=== PATIENT | female | born 1950 | race Caucasian/White ===

== ENCOUNTER 2017-02-03 19:11 | Emergency (ER) | payer MEDICARE, MEDICAID ==
[2017-02-03] MEDS ORDERED: proparacaine 0.5% ophthalmic drops 15ml LEFTEYE ONE (21:10)
[2017-02-03] MEDS ORDERED: POLOS LEFTEYE (21:35)
[2017-02-03 21:44] VITALS: BP 188/105
== END 2017-02-03 21:46 | disposition home or self-care (01) ==
LOC: ER 19:12
DX: H10.9 Unspecified conjunctivitis (principal); Z86.19 Personal history of other infectious and parasitic diseases; Z85.89 Personal history of malignant neoplasm of other organs and systems
CPT/HCPCS: 99283

== ENCOUNTER 2017-08-27 02:20 | Emergency (ER) | payer MEDICARE, MEDICAID ==
[~2017-08-27] VITALS: Ht 157.5 cm; Wt 70.0 kg
[2017-08-27] MEDS ORDERED: OLANZapine 2.5MG tablet PO SCH (03:15)
[2017-08-27 03:27] LABS: BASOPHILS % (AUTO) 0.1 % (0-1); EOSINOPHILS # (AUTO) 0.1 X10'3 (0-0.9); EOSINOPHILS % (AUTO) 0.3 % (0-6); HEMATOCRIT 44.7 % (35.0-45.0); LYMPHOCYTES # (AUTO) 1.8 X10'3 (1.1-4.8); LYMPHOCYTES % (AUTO) 11.3 % (21-51); MEAN CORPUSCULAR HEMOGLOBIN 32.9 PG (27.0-31.0); MEAN CORPUSCULAR HGB CONC 33.6 % (33.0-36.5); MEAN CORPUSCULAR VOLUME 97.9 FL (78-98); MEAN PLATELET VOLUME 11.1 FL (7.4-10.4); MONOCYTES % (AUTO) 6.5 % (2-12); NEUTROPHILS # (AUTO) 13.1 X10'3 (1.8-7.7); NEUTROPHILS % (AUTO) 81.8 % (42-75); PLATELET COUNT 255 X10'3 (140-440); RED BLOOD COUNT 4.56 X10'6 (4.20-5.60); RED CELL DISTRIBUTION WIDTH 14.4 % (11.5-14.5)
[2017-08-27 03:32] LABS: CLARITY,URINE CLOUDY (Clear); COLOR,URINE YELLOW (Yellow); GLUCOSE, URINE NEGATIVE (Neg); KETONES,URINE TRACE mg/dl (Neg); LEUKOCYTE ESTERASE ,URINE SMALL (Neg); NITRITES, URINE POSITIVE (Neg); OCCULT BLOOD,URINE TRACE-INTACT (Neg); PROTEIN,URINE TRACE mg/dl (Neg); UA COLLECTION TYPE STRAIGHT CATH
[2017-08-27 03:42] LABS: URINE AMPHETAMINE SCREEN NEGATIVE (Neg); URINE BARBITUATE SCREEN NEGATIVE (Neg); URINE BENZODIAZEPINES SCREEN NEGATIVE (Neg); URINE CANNABINOID SCREEN POSITIVE (Neg); URINE COCAINE SCREEN NEGATIVE (Neg); URINE METHADONE SCREEN NEGATIVE (Neg); URINE OPIATE SCREEN NEGATIVE (Neg); URINE PHENCYCLIDINE SCREEN NEGATIVE (Neg)
[2017-08-27 03:44] LABS: BACTERIA,URINE 4+ /HPF (Neg); RBC,URINE 0-2 /HPF (0-2); SQUAMOUS EPITHELIAL CELL,UR MODERATE /LPF (FEW); WBC,URINE 30-50 /HPF (0-4)
[2017-08-27 03:45] LABS: HYALINE CASTS 0-3 /LPF (NEGATIVE); MUCUS STRANDS FEW /LPF (Neg); WBC CLUMPS,URINE FEW /HPF (NEGATIVE)
[2017-08-27 03:53] LABS: ALANINE AMINOTRANSFERASE 45 U/L (12-78); ALBUMIN 3.9 G/DL (3.4-5.0); ALKALINE PHOSPHATASE 113 IU/L (46-116); ANION GAP 11 (8-16); ASPARTATE AMINO TRANSFERASE 36 U/L (10-37); BILIRUBIN,TOTAL 0.8 MG/DL (0.1-1.0); BLOOD UREA NITROGEN 23 MG/DL (7-18); BUN/CREATININE RATIO 20.2 (6.6-38.0); CHLORIDE 105 MMOL/L (99-107); CREATININE 1.14 MG/DL (0.40-0.90); GLUCOSE 106 MG/DL (70-104); POTASSIUM 3.3 MMOL/L (3.5-5.1); SODIUM 141 MMOL/L (135-145); TOTAL CARBON DIOXIDE 25.3 MMOL/L (24-32); TOTAL PROTEIN 7.7 G/DL (6.4-8.2); eGFR 48 ML/MIN
[2017-08-27 04:03] LABS: ETHANOL < 0.010 GM/DL (0.0-0.010)
[2017-08-27 04:04] LABS: ACETAMINOPHEN < 2.0 UG/ML (10-30)
[2017-08-27] MEDS ORDERED: METO50TA16 PO (04:06)
[2017-08-27 04:07] LABS: LARGE PLATELETS MODERATE; PLATELET ESTIMATE NORMAL
[2017-08-27] MEDS ORDERED: OLANZapine **IM** 10 mg inj. IM ONE (04:25)
[2017-08-27] MEDS ORDERED: CefTRIAXone/D5W-Rocephin 1gm 50 ML IV ONE (06:00)
[2017-08-27] MEDS ORDERED: normal saline 1000ML IV soln IVB ONE (07:00)
[2017-08-27] MEDS ORDERED: LORazepam 2 mg/ml vial IV ONE (08:45)
[2017-08-27] MEDS ORDERED: OLANZapine **IM** 10 mg inj. IM PRN (18:00)
[2017-08-27] MEDS ORDERED: LORazepam 1 MG tablet PO ONE (18:00)
[2017-08-27] MEDS: nitrofuran/nitrofuran macrocrysal 100 MG capsule PO SCH (21:08)
[2017-08-28 06:52] VITALS: BP 148/81
[2017-08-28] MEDS: nitrofuran/nitrofuran macrocrysal 100 MG capsule PO SCH (08:24)
[2017-08-28] MEDS ORDERED: ibuprofen tablet 400 MG TABLET PO ONE (08:30)
== END 2017-08-28 13:09 | disposition home or self-care (01) ==
LOC: ER 02:20
DX: F29 Unspecified psychosis not due to a substance or known physiological condition (principal); R41.0 Disorientation, unspecified; I10 Essential (primary) hypertension; E11.9 Type 2 diabetes mellitus without complications
CPT/HCPCS: 36415; 70450; 71045; 80053; 80305; 80320; 80329; 81001; 84443; 85025; 96365; 96372; 96375; 99285; J0696; J2060; J7030

== ENCOUNTER 2017-08-28 12:00 | Inpatient (IN) | payer MEDICARE, MEDICAID ==
[~2017-08-28] VITALS: Ht 160 cm; Wt 74.0 kg
[~2017-08-28 12:00] MED LIST: METO50TA16 PO
[2017-08-28 13:41] VITALS: BP 156/84
[2017-08-28] MEDS ORDERED: magnesium hydroxide 30ml (MOM) UD suspension PO PRN (13:45)
[2017-08-28] MEDS ORDERED: acetaminophen 325mg tablet PO PRN (13:45)
[2017-08-28 14:32] LABS: CHOL/HDL RATIO 3.4 (0.00-4.99); CHOLESTEROL 155 MG/DL (0-200); HDL CHOLESTEROL 46 MG/DL (35-60); LDL CHOLESTEROL 89 MG/DL (50-100); TRIGLYCERIDES 124 MG/DL (20-135)
[2017-08-28 19:00] VITALS: BP 139/75
[2017-08-28] MEDS: nitrofuran/nitrofuran macrocrysal 100 MG capsule PO SCH (20:51)
[2017-08-28] MEDS: metoprolol tartrate 50mg tablet PO SCH (20:52)
[2017-08-28] MEDS: acetaminophen 325mg tablet PO PRN (20:52)
[2017-08-29] MEDS ORDERED: traZODone 50mg tablet PO ONE (00:39)
[2017-08-29 08:00] VITALS: BP 149/81
[2017-08-29] MEDS: metoprolol tartrate 50mg tablet PO SCH ×2 (08:15→20:57)
[2017-08-29] MEDS: nitrofuran/nitrofuran macrocrysal 100 MG capsule PO SCH ×2 (08:15→20:57)
[2017-08-29] MEDS: mag hydrox/Alum hydrox/simeth 30ml oral suspension PO PRN (09:59)
[2017-08-29] MEDS ORDERED: nicotine prolacrilex 2mg gum BC PRN (10:15)
[2017-08-29] MEDS ORDERED: nicotine 21mg patch - 24 hr TD ONE (10:15)
[2017-08-29] MEDS ORDERED: magnesium 4gm in 100ml NS 100 ML IV PRN (18:30)
[2017-08-29] MEDS ORDERED: potassium Cl 20 mEq SR tablet PO PRN ×2 (18:30)
[2017-08-29] MEDS ORDERED: potassium Cl 40MEQ/NS 500ml 500 ML IV PRN ×2 (18:30)
[2017-08-29] MEDS ORDERED: magnesium Cl slow-release 64mg tablet PO PRN (18:30)
[2017-08-29] MEDS: hydrOXYzine 25 MG tablet PO PRN (20:57)
[2017-08-29 20:59] VITALS: BP 129/81
[2017-08-29] MEDS ORDERED: divalproex sod 250mg ER (24-hour) tablet PO SCH (21:00)
[2017-08-30] MEDS ORDERED: temazepam 15mg capsule PO ONE (01:15)
[2017-08-30] MEDS ORDERED: temazepam 15mg capsule PO PRN (01:15)
[2017-08-30] MEDS: mag hydrox/Alum hydrox/simeth 30ml oral suspension PO PRN (01:24)
[2017-08-30] MEDS: acetaminophen 325mg tablet PO PRN ×2 (01:25→20:09)
[2017-08-30] MEDS: metoprolol tartrate 50mg tablet PO SCH ×2 (07:54→20:09)
[2017-08-30] MEDS: nicotine 21mg patch - 24 hr TD SCH (07:54)
[2017-08-30] MEDS: nitrofuran/nitrofuran macrocrysal 100 MG capsule PO SCH ×2 (07:54→20:09)
[2017-08-30 07:56] VITALS: BP 142/85
[2017-08-30 08:23] LABS: ALBUMIN 2.9 G/DL (3.4-5.0); ANION GAP 11 (8-16); BLOOD UREA NITROGEN 21 MG/DL (7-18); BUN/CREATININE RATIO 29.6 (6.6-38.0); CALCIUM 9.4 MG/DL (8.5-10.1); CHLORIDE 101 MMOL/L (99-107); CREATININE 0.71 MG/DL (0.40-0.90); GLUCOSE 116 MG/DL (70-104); POTASSIUM 3.6 MMOL/L (3.5-5.1); SODIUM 139 MMOL/L (135-145); TOTAL CARBON DIOXIDE 27.1 MMOL/L (24-32); eGFR 82 ML/MIN
[2017-08-30] MEDS ORDERED: divalproex sod 250mg ER (24-hour) tablet PO SCH ×2 (08:30→21:00)
[2017-08-30] MEDS: protein smoothie 8oz. (237ml) PO SCH ×2 (13:00→18:00)
[2017-08-30 20:00] VITALS: BP 135/87
[2017-08-30] MEDS: hydrOXYzine 25 MG tablet PO PRN (20:08)
[2017-08-30] MEDS ORDERED: QUEtiapine 25mg tablet PO SCH (21:00)
[2017-08-31] MEDS: temazepam 15mg capsule PO PRN ×2 (00:10→20:20)
[2017-08-31] MEDS: mag hydrox/Alum hydrox/simeth 30ml oral suspension PO PRN (03:56)
[2017-08-31] MEDS ORDERED: quetiapine 100mg tablet PO ONE (07:45)
[2017-08-31] MEDS ORDERED: divalproex sod 250mg ER (24-hour) tablet PO ONE (07:45)
[2017-08-31 08:00] VITALS: BP 140/72
[2017-08-31] MEDS: protein smoothie 8oz. (237ml) PO SCH ×3 (08:00→18:00)
[2017-08-31] MEDS: nicotine 21mg patch - 24 hr TD SCH (08:39)
[2017-08-31] MEDS: nitrofuran/nitrofuran macrocrysal 100 MG capsule PO SCH ×2 (08:39→20:20)
[2017-08-31] MEDS: metoprolol tartrate 50mg tablet PO SCH ×2 (08:40→20:19)
[2017-08-31] MEDS: divalproex sod 250mg ER (24-hour) tablet PO SCH ×2 (08:40→20:19)
[2017-08-31 08:57] LABS: MAGNESIUM 2.1 MG/DL (1.5-2.4); POTASSIUM 3.7 MMOL/L (3.5-5.1)
[2017-08-31 19:00] VITALS: BP 136/65
[2017-08-31] MEDS: quetiapine 100mg tablet PO SCH (20:19)
[2017-08-31] MEDS: hydrOXYzine 25 MG tablet PO PRN (20:20)
[2017-08-31] MEDS ORDERED: LORazepam 1 MG tablet PO PRN (22:50)
[2017-09-01 08:00] VITALS: BP 162/81
[2017-09-01] MEDS: protein smoothie 8oz. (237ml) PO SCH ×3 (08:00→18:00)
[2017-09-01 09:14] LABS: MAGNESIUM 2.2 MG/DL (1.5-2.4); POTASSIUM 3.7 MMOL/L (3.5-5.1)
[2017-09-01] MEDS: nicotine 21mg patch - 24 hr TD SCH (09:18)
[2017-09-01] MEDS: divalproex sod 250mg ER (24-hour) tablet PO SCH ×2 (09:18→22:30)
[2017-09-01] MEDS: metoprolol tartrate 50mg tablet PO SCH ×2 (09:19→22:31)
[2017-09-01] MEDS: hydrOXYzine 25 MG tablet PO PRN (09:19)
[2017-09-01] MEDS: nitrofuran/nitrofuran macrocrysal 100 MG capsule PO SCH ×2 (09:19→22:32)
[2017-09-01 20:00] VITALS: BP 103/73
[2017-09-01] MEDS: quetiapine 100mg tablet PO SCH (22:32)
[2017-09-01] MEDS: acetaminophen 325mg tablet PO PRN (22:47)
[2017-09-02 08:00] VITALS: BP 157/72
[2017-09-02] MEDS: protein smoothie 8oz. (237ml) PO SCH (08:00)
[2017-09-02] MEDS: divalproex sod 250mg ER (24-hour) tablet PO SCH (08:08)
[2017-09-02] MEDS: metoprolol tartrate 50mg tablet PO SCH (08:08)
[2017-09-02] MEDS: nitrofuran/nitrofuran macrocrysal 100 MG capsule PO SCH (08:08)
[2017-09-02] MEDS: nicotine 21mg patch - 24 hr TD SCH (08:08)
[2017-09-02] MEDS ORDERED: aspirin 325mg tablet PO SCH (12:10)
[2017-09-02] MEDS ORDERED: normal saline 1000ml 1,000 ML IV SCH (12:15)
[2017-09-02 12:38] LABS: BASOPHILS # (AUTO) 0.1 X10'3 (0-0.2); BASOPHILS % (AUTO) 0.5 % (0-1); EOSINOPHILS # (AUTO) 0.2 X10'3 (0-0.9); EOSINOPHILS % (AUTO) 1.5 % (0-6); HEMATOCRIT 39.4 % (35.0-45.0); HEMOGLOBIN 13.3 g/dl (12.0-16.0); LYMPHOCYTES # (AUTO) 3.3 X10'3 (1.1-4.8); LYMPHOCYTES % (AUTO) 22.9 % (21-51); MEAN CORPUSCULAR HEMOGLOBIN 32.8 PG (27.0-31.0); MEAN CORPUSCULAR HGB CONC 33.8 % (33.0-36.5); MEAN PLATELET VOLUME 11.5 FL (7.4-10.4); MONOCYTES % (AUTO) 6.8 % (2-12); NEUTROPHILS % (AUTO) 68.3 % (42-75); PLATELET COUNT 227 X10'3 (140-440); RED BLOOD COUNT 4.06 X10'6 (4.20-5.60); RED CELL DISTRIBUTION WIDTH 14.4 % (11.5-14.5); WHITE BLOOD COUNT 14.6 X10'3 (4.5-11.0)
[2017-09-02 12:49] LABS: INR 1.1 INR; PARTIAL THROMBOPLASTIN TIME 26 SECONDS (22-32); PROTHROMBIN TIME 11.1 SECONDS (9.0-12.0)
[2017-09-02 12:53] LABS: ALANINE AMINOTRANSFERASE 58 U/L (12-78); ALBUMIN 2.9 G/DL (3.4-5.0); ALBUMIN/GLOBULIN RATIO 0.7 (1.1-1.5); ALKALINE PHOSPHATASE 121 IU/L (46-116); ANION GAP 12 (8-16); ASPARTATE AMINO TRANSFERASE 23 U/L (10-37); BILIRUBIN,TOTAL 0.6 MG/DL (0.1-1.0); BLOOD UREA NITROGEN 18 MG/DL (7-18); BUN/CREATININE RATIO 25.4 (6.6-38.0); CALCIUM 9.5 MG/DL (8.5-10.1); CHLORIDE 101 MMOL/L (99-107); CREATININE 0.71 MG/DL (0.40-0.90); GLUCOSE 177 MG/DL (70-104); POTASSIUM 3.9 MMOL/L (3.5-5.1); SODIUM 137 MMOL/L (135-145); TOTAL CARBON DIOXIDE 23.7 MMOL/L (24-32); TOTAL PROTEIN 6.8 G/DL (6.4-8.2); eGFR 82 ML/MIN
[2017-09-02 12:57] LABS: D-DIMER 1.24 MG/L FEU (0-0.50)
[2017-09-02] MEDS ORDERED: heparin 10,000 units/1 ML INJ IV ONE (13:05)
[2017-09-02] MEDS ORDERED: heparin 10,000 units/1 ML INJ IV PRN (13:05)
[2017-09-02 13:06] LABS: LARGE PLATELETS MODERATE; PLATELET ESTIMATE NORMAL; TOTAL CELLS COUNTED 100
[2017-09-02] MEDS ORDERED: haloperidol 1mg tablet PO SCH (20:00)
[2017-09-02] MEDS ORDERED: LORazepam 0.5 MG tablet PO SCH (20:00)
[2017-09-06] MEDS ORDERED: TRAZ-143 PO (13:33)
== END 2017-09-02 14:03 | disposition still patient (30) | DRG 885 ==
LOC: ADULT MH 12:00
PROVIDERS: ADMIT Psychiatry & Neurology Psychiatry; ATTEND Psychiatry & Neurology Psychiatry
DX: F20.3 Undifferentiated schizophrenia (principal); N17.9 Acute kidney failure, unspecified; N39.0 Urinary tract infection, site not specified; E11.9 Type 2 diabetes mellitus without complications; E86.0 Dehydration; E87.6 Hypokalemia; F10.11 Alcohol abuse, in remission; M79.601 Pain in right arm; F12.10 Cannabis abuse, uncomplicated; F17.210 Nicotine dependence, cigarettes, uncomplicated; E66.3 Overweight; M50.90 Cervical disc disorder, unspecified, unspecified cervical region; I70.8 Atherosclerosis of other arteries; D72.829 Elevated white blood cell count, unspecified; F31.9 Bipolar disorder, unspecified; F41.9 Anxiety disorder, unspecified; I10 Essential (primary) hypertension; Z79.899 Other long term (current) drug therapy; Z85.828 Personal history of other malignant neoplasm of skin; Z91.5 Personal history of self-harm; Z71.6 Tobacco abuse counseling; Z71.51 Drug abuse counseling and surveillance of drug abuser; Z68.28 Body mass index [BMI] 28.0-28.9, adult
CPT/HCPCS: 36415; 71045; 73206; 80048; 80053; 80061; 82948; 83036; 83605; 83735; 84132; 84484; 85025; 85379; 85610; 85730; 87070; 93005; 93931; 99406; C1751; J7030; Q0177

== ENCOUNTER 2017-09-02 13:33 | Inpatient (IN) | payer MEDICARE, MEDICAID ==
[~2017-09-02] VITALS: Ht 160 cm; Wt 78.1 kg
[2017-09-02] VITALS (16 sets, daily range): BP systolic 92–219; BP diastolic 48–113
[2017-09-02] MEDS ORDERED: MIDAZolam 5mg/ml 2ml vial ONE (14:23)
[2017-09-02 14:26] LABS: ABG BASE EXCESS -8.7 mmol/L (-2.0-3.0); ABG HCO3 19.8 mmol/L (22.0-26.0); ABG OXYGEN SATURATION 94.1 % (95-98); ABG PCO2 (T) 52.6 mmHg (32.0-45.0); ABG PH (T) 7.194 (7.350-7.450); ABG PO2 (T) 89.5 mmHg (83-108); ALLEN'S TEST Positive; FCOHb 0.3 % (0.5-1.5); FMetHb 0.3 % (0.3-1.12); FO2Hb 93.5 % (94-100); TOTAL HEMOGLOBIN 14.7 G/dl (12.0-16.0)
[2017-09-02] MEDS ORDERED: heparin 10,000 units/1 ML INJ IV ONE (14:30)
[2017-09-02] MEDS ORDERED: heparin 10,000 units/1 ML INJ IV PRN (14:30)
[2017-09-02] MEDS ORDERED: midazolam 100mg in NS 100ml 100 ML IV PRN (14:47)
[2017-09-02 14:51] LABS: CLARITY,URINE SLIGHTLY CLOUDY (Clear); COLOR,URINE YELLOW (Yellow); GLUCOSE, URINE NEGATIVE (Neg); KETONES,URINE 15 mg/dl (Neg); LEUKOCYTE ESTERASE ,URINE NEGATIVE (Neg); NITRITES, URINE NEGATIVE (Neg); OCCULT BLOOD,URINE NEGATIVE (Neg); PROTEIN,URINE NEGATIVE (Neg); UROBILINOGEN,URINE 0.2 E.U/dL (0.2-1.0)
[2017-09-02 14:56] LABS: UA COLLECTION TYPE NON-SPECIFIED
[2017-09-02 15:00] LABS: AMORPHOUS URATES 1+; BACTERIA,URINE NONE SEEN /HPF (Neg); MUCUS STRANDS MANY /LPF (Neg); RBC,URINE NONE SEEN /HPF (0-2); RENAL CELLS, URINE FEW /HPF; SQUAMOUS EPITHELIAL CELL,UR MANY /LPF (FEW); TRANSITIONAL EPI CELLS,URINE MODERATE /HPF; WBC,URINE 0-4 /HPF (0-4)
[2017-09-02 15:01] LABS: HYALINE CASTS 0-3 /LPF (NEGATIVE)
[2017-09-02] MEDS: FENTANYL-0.9 % NACL/PF 100 ML IV PRN (15:10)
[2017-09-02] MEDS ORDERED: magnesium hydroxide 30ml (MOM) UD suspension PO PRN (15:15)
[2017-09-02] MEDS ORDERED: metoclopramide 5 mg/ml inj IV PRN (15:15)
[2017-09-02] MEDS ORDERED: acetaminophen 325mg tablet PO PRN ×2 (15:15)
[2017-09-02] MEDS ORDERED: potassium Cl 20 mEq SR tablet PO PRN (15:15)
[2017-09-02] MEDS ORDERED: morphine 4 MG/ML inj SYRINge IV PRN ×2 (15:15)
[2017-09-02 15:26] LABS: BASOPHILS % (AUTO) 0.2 % (0-1); EOSINOPHILS # (AUTO) 0.1 X10'3 (0-0.9); EOSINOPHILS % (AUTO) 0.9 % (0-6); HEMATOCRIT 38.2 % (35.0-45.0); HEMOGLOBIN 12.9 g/dl (12.0-16.0); LYMPHOCYTES # (AUTO) 1.2 X10'3 (1.1-4.8); LYMPHOCYTES % (AUTO) 10.1 % (21-51); MEAN CORPUSCULAR HEMOGLOBIN 32.9 PG (27.0-31.0); MEAN CORPUSCULAR HGB CONC 33.9 % (33.0-36.5); MEAN CORPUSCULAR VOLUME 97.2 FL (78-98); MEAN PLATELET VOLUME 11.1 FL (7.4-10.4); MONOCYTES # (AUTO) 0.4 X10'3 (0-0.9); MONOCYTES % (AUTO) 3.5 % (2-12); NEUTROPHILS # (AUTO) 9.8 X10'3 (1.8-7.7); NEUTROPHILS % (AUTO) 85.3 % (42-75); PLATELET COUNT 207 X10'3 (140-440); RED BLOOD COUNT 3.93 X10'6 (4.20-5.60); RED CELL DISTRIBUTION WIDTH 13.9 % (11.5-14.5); WHITE BLOOD COUNT 11.5 X10'3 (4.5-11.0)
[2017-09-02] MEDS ORDERED: iohexol 350MG/ML 100ml bottle IV ONE (15:30)
[2017-09-02] MEDS ORDERED: iohexol 350 MG/ML 50ML vial IV ONE (15:31)
[2017-09-02 15:35] LABS: INR 1.1 INR; PROTHROMBIN TIME 11.6 SECONDS (9.0-12.0)
[2017-09-02 15:43] LABS: LARGE PLATELETS MODERATE; PLATELET ESTIMATE NORMAL
[2017-09-02 15:44] LABS: ALANINE AMINOTRANSFERASE 55 U/L (12-78); ALBUMIN 2.7 G/DL (3.4-5.0); ALBUMIN/GLOBULIN RATIO 0.7 (1.1-1.5); ALKALINE PHOSPHATASE 113 IU/L (46-116); ANION GAP 13 (8-16); ASPARTATE AMINO TRANSFERASE 19 U/L (10-37); BILIRUBIN,TOTAL 0.5 MG/DL (0.1-1.0); BLOOD UREA NITROGEN 21 MG/DL (7-18); CHLORIDE 103 MMOL/L (99-107); CREATININE 0.84 MG/DL (0.40-0.90); GLUCOSE 232 MG/DL (70-104); SODIUM 139 MMOL/L (135-145); TOTAL CARBON DIOXIDE 23.5 MMOL/L (24-32); TOTAL PROTEIN 6.6 G/DL (6.4-8.2); eGFR 68 ML/MIN
[2017-09-02 15:51] LABS: ABG BASE EXCESS -5.2 mmol/L (-2.0-3.0); ABG HCO3 21.8 mmol/L (22.0-26.0); ABG OXYGEN SATURATION 99.2 % (95-98); ABG PCO2 (T) 48.1 mmHg (32.0-45.0); ABG PH (T) 7.274 (7.350-7.450); ABG PO2 (T) 206.9 mmHg (83-108); FCOHb 0.3 % (0.5-1.5); FMetHb 0.4 % (0.3-1.12); FO2Hb 98.5 % (94-100); MINUTE VOLUME 8 L/min; PEEP 5 cm H2O; RESPIRATORY RATE 18 b/min; RESPIRATORY RATE (OBSERVED) 18 b/min; TOTAL HEMOGLOBIN 13.2 G/dl (12.0-16.0)
[2017-09-02 15:58] LABS: TROPONIN I 0.33 NG/ML (0.0-0.05)
[2017-09-02] MEDS ORDERED: heparin 10,000 units/1 ML INJ ONE (17:48)
[2017-09-02] MEDS ORDERED: rocuronium 10mg/ml inj IV ONE (18:00)
[2017-09-02] MEDS ORDERED: sevoflurane 250ml liquid IH ONE (18:00)
[2017-09-02] MEDS ORDERED: ceFAZolin 1000mg inj ONE ×2 (18:03→18:50)
[2017-09-02] MEDS ORDERED: fentaNYL /PF 50mcg/ml 5ml ampule ONE (18:19)
[2017-09-02] MEDS ORDERED: enoxaparin 80mg/0.8ml syringe SUBCUT SCH (20:35)
[2017-09-02 20:43] LABS: PARTIAL THROMBOPLASTIN TIME 153 SECONDS (22-32)
[2017-09-02 20:56] LABS: BASOPHILS % (AUTO) 0.4 % (0-1); EOSINOPHILS # (AUTO) 0.1 X10'3 (0-0.9); EOSINOPHILS % (AUTO) 0.9 % (0-6); HEMATOCRIT 34.8 % (35.0-45.0); HEMOGLOBIN 11.6 g/dl (12.0-16.0); LYMPHOCYTES # (AUTO) 1.7 X10'3 (1.1-4.8); LYMPHOCYTES % (AUTO) 16.2 % (21-51); MEAN CORPUSCULAR HGB CONC 33.3 % (33.0-36.5); MEAN CORPUSCULAR VOLUME 98.9 FL (78-98); MEAN PLATELET VOLUME 10.8 FL (7.4-10.4); MONOCYTES # (AUTO) 0.6 X10'3 (0-0.9); MONOCYTES % (AUTO) 5.5 % (2-12); NEUTROPHILS # (AUTO) 8.1 X10'3 (1.8-7.7); PLATELET COUNT 194 X10'3 (140-440); RED BLOOD COUNT 3.52 X10'6 (4.20-5.60); RED CELL DISTRIBUTION WIDTH 14.3 % (11.5-14.5); WHITE BLOOD COUNT 10.6 X10'3 (4.5-11.0)
[2017-09-02 21:11] LABS: ABG BASE EXCESS -1.2 mmol/L (-2.0-3.0); ABG HCO3 23.3 mmol/L (22.0-26.0); ABG OXYGEN SATURATION 94.2 % (95-98); ABG PCO2 (T) 37.8 mmHg (32.0-45.0); ABG PH (T) 7.406 (7.350-7.450); ABG PO2 (T) 72.3 mmHg (83-108); FCOHb 0.2 % (0.5-1.5); FMetHb 0.3 % (0.3-1.12); FO2Hb 93.7 % (94-100); MINUTE VOLUME 8 L/min; PATIENT TEMPERATURE 36.7; PEEP 5 cm H2O; RESPIRATORY RATE 18 b/min; RESPIRATORY RATE (OBSERVED) 19 b/min; TIDAL VOLUME 400 mL; TOTAL HEMOGLOBIN 12.9 G/dl (12.0-16.0)
[2017-09-02 21:14] LABS: ALANINE AMINOTRANSFERASE 48 U/L (12-78); ALBUMIN 2.3 G/DL (3.4-5.0); ALBUMIN/GLOBULIN RATIO 0.7 (1.1-1.5); ALKALINE PHOSPHATASE 99 IU/L (46-116); ANION GAP 8 (8-16); ASPARTATE AMINO TRANSFERASE 21 U/L (10-37); BILIRUBIN,TOTAL 0.5 MG/DL (0.1-1.0); BLOOD UREA NITROGEN 17 MG/DL (7-18); BUN/CREATININE RATIO 29.3 (6.6-38.0); CALCIUM 8.1 MG/DL (8.5-10.1); CHLORIDE 107 MMOL/L (99-107); CREATININE 0.58 MG/DL (0.40-0.90); GLUCOSE 108 MG/DL (70-104); MAGNESIUM 1.9 MG/DL (1.5-2.4); PHOSPHORUS 3.5 MG/DL (2.3-4.5); POTASSIUM 3.9 MMOL/L (3.5-5.1); SODIUM 140 MMOL/L (135-145); TOTAL CARBON DIOXIDE 24.8 MMOL/L (24-32); TOTAL PROTEIN 5.7 G/DL (6.4-8.2); TROPONIN I 0.39 NG/ML (0.0-0.05); eGFR > 90 ML/MIN
[2017-09-02] MEDS: K, MAG and/or Phos replacement - Verify level? MC SCH (21:55)
[2017-09-03] VITALS (25 sets, daily range): BP systolic 83–203; BP diastolic 44–107
[2017-09-03] MEDS ORDERED: ceFAZolin 1GM/D5W- ADD-VANTAGE 50 ML IV SCH
[2017-09-03 02:14] LABS: BASOPHILS # (AUTO) 0.1 X10'3 (0-0.2); BASOPHILS % (AUTO) 0.5 % (0-1); EOSINOPHILS # (AUTO) 0.2 X10'3 (0-0.9); EOSINOPHILS % (AUTO) 1.4 % (0-6); HEMATOCRIT 32.8 % (35.0-45.0); HEMOGLOBIN 11.1 g/dl (12.0-16.0); LYMPHOCYTES # (AUTO) 2.7 X10'3 (1.1-4.8); LYMPHOCYTES % (AUTO) 20.5 % (21-51); MEAN CORPUSCULAR HEMOGLOBIN 33.1 PG (27.0-31.0); MEAN CORPUSCULAR HGB CONC 33.9 % (33.0-36.5); MEAN CORPUSCULAR VOLUME 97.6 FL (78-98); MEAN PLATELET VOLUME 11.1 FL (7.4-10.4); MONOCYTES # (AUTO) 0.8 X10'3 (0-0.9); MONOCYTES % (AUTO) 6.5 % (2-12); NEUTROPHILS # (AUTO) 9.2 X10'3 (1.8-7.7); NEUTROPHILS % (AUTO) 71.1 % (42-75); PLATELET COUNT 181 X10'3 (140-440); RED BLOOD COUNT 3.36 X10'6 (4.20-5.60); RED CELL DISTRIBUTION WIDTH 14.3 % (11.5-14.5); WHITE BLOOD COUNT 12.9 X10'3 (4.5-11.0)
[2017-09-03] MEDS: ceFAZolin 1GM/D5W- ADD-VANTAGE 50 ML IV SCH ×2 (02:16→08:53)
[2017-09-03 02:25] LABS: ALANINE AMINOTRANSFERASE 43 U/L (12-78); ALBUMIN 2.3 G/DL (3.4-5.0); ALBUMIN/GLOBULIN RATIO 0.7 (1.1-1.5); ALKALINE PHOSPHATASE 92 IU/L (46-116); ANION GAP 9 (8-16); ASPARTATE AMINO TRANSFERASE 18 U/L (10-37); BILIRUBIN,TOTAL 0.5 MG/DL (0.1-1.0); BLOOD UREA NITROGEN 15 MG/DL (7-18); BUN/CREATININE RATIO 26.3 (6.6-38.0); CALCIUM 8.3 MG/DL (8.5-10.1); CHLORIDE 107 MMOL/L (99-107); CREATININE 0.57 MG/DL (0.40-0.90); GLUCOSE 108 MG/DL (70-104); MAGNESIUM 1.8 MG/DL (1.5-2.4); PHOSPHORUS 3.1 MG/DL (2.3-4.5); POTASSIUM 3.3 MMOL/L (3.5-5.1); SODIUM 140 MMOL/L (135-145); TOTAL CARBON DIOXIDE 23.7 MMOL/L (24-32); TOTAL PROTEIN 5.5 G/DL (6.4-8.2); eGFR > 90 ML/MIN
[2017-09-03 03:21] LABS: ABG BASE EXCESS 0.6 mmol/L (-2.0-3.0); ABG HCO3 23.3 mmol/L (22.0-26.0); ABG OXYGEN SATURATION 92.5 % (95-98); ABG PCO2 (T) 31.8 mmHg (32.0-45.0); ABG PH (T) 7.483 (7.350-7.450); ABG PO2 (T) 62.6 mmHg (83-108); FCOHb 0.1 % (0.5-1.5); FMetHb 0.2 % (0.3-1.12); FO2Hb 92.2 % (94-100); MINUTE VOLUME 8 L/min; PATIENT TEMPERATURE 37.1; PEEP 5 cm H2O; RESPIRATORY RATE 18 b/min; RESPIRATORY RATE (OBSERVED) 18 b/min; TIDAL VOLUME 400 mL; TOTAL HEMOGLOBIN 12.4 G/dl (12.0-16.0)
[2017-09-03 04:03] LABS: TROPONIN I 0.38 NG/ML (0.0-0.05)
[2017-09-03] MEDS: FENTANYL-0.9 % NACL/PF 100 ML IV PRN (04:22)
[2017-09-03] MEDS ORDERED: potassium Cl 40MEQ/250ML bag 250 ML IV PRN (04:25)
[2017-09-03] MEDS ORDERED: potassium Cl 40MEQ/250ML bag 250 ML IV ONE (05:06)
[2017-09-03] MEDS: potassium Cl 40MEQ/250ML bag 250 ML IV PRN ×2 (05:13→22:33)
[2017-09-03] MEDS: K, MAG and/or Phos replacement - Verify level? MC SCH (08:00)
[2017-09-03] MEDS: pantoprazole 40 MG vial IV SCH ×2 (08:00→08:54)
[2017-09-03 09:19] LABS: INR 1.1 INR; PROTHROMBIN TIME 11.4 SECONDS (9.0-12.0)
[2017-09-03] MEDS ORDERED: hydrOXYzine 25 MG tablet PO PRN (11:20)
[2017-09-03] MEDS ORDERED: mag hydrox/Alum hydrox/simeth 30ml oral suspension PO PRN (11:25)
[2017-09-03] MEDS ORDERED: nicotine prolacrilex 2mg gum BC PRN (11:25)
[2017-09-03] MEDS ORDERED: traZODone 50mg tablet PO PRN (11:35)
[2017-09-03] MEDS ORDERED: temazepam 15mg capsule PO PRN (11:35)
[2017-09-03] MEDS: valproate sod 250mg/5ml UD oral syrup PO SCH ×3 (12:41→20:08)
[2017-09-03] MEDS: apixaban 5mg tablet PO SCH ×2 (12:44→20:08)
[2017-09-03] MEDS: nicotine 21mg patch - 24 hr TD SCH (12:46)
[2017-09-03] MEDS: LORazepam 1 MG tablet PO PRN (15:50)
[2017-09-03] MEDS ORDERED: LORazepam 2 mg/ml vial IV ONE (16:10)
[2017-09-03] MEDS ORDERED: furosemide 10 MG/1 ML 10ml inj IV ONE (16:10)
[2017-09-03 16:51] LABS: ABG BASE EXCESS -4.7 mmol/L (-2.0-3.0); ABG HCO3 22.2 mmol/L (22.0-26.0); ABG OXYGEN SATURATION 98.6 % (95-98); ABG PCO2 (T) 49.5 mmHg (32.0-45.0); ABG PH (T) 7.273 (7.350-7.450); ABG PO2 (T) 146.3 mmHg (83-108); ALLEN'S TEST Positive; FCOHb 0.4 % (0.5-1.5); FMetHb 0.3 % (0.3-1.12); FO2Hb 97.9 % (94-100); MINUTE VOLUME 16 L/min; PATIENT TEMPERATURE 37.6; RESPIRATORY RATE 14 b/min; RESPIRATORY RATE (OBSERVED) 23 b/min; TOTAL HEMOGLOBIN 13.8 G/dl (12.0-16.0)
[2017-09-03] MEDS: metoprolol tartrate 50mg tablet PO SCH (20:08)
[2017-09-03] MEDS: quetiapine 100mg tablet PO SCH (20:09)
[2017-09-03] MEDS: LORazepam 0.5 MG tablet PO SCH (20:09)
[2017-09-03] MEDS: haloperidol 1mg tablet PO SCH (20:09)
[2017-09-04] VITALS (23 sets, daily range): BP systolic 93–158; BP diastolic 40–85
[2017-09-04 02:44] LABS: BASOPHILS # (AUTO) 0.1 X10'3 (0-0.2); BASOPHILS % (AUTO) 0.5 % (0-1); EOSINOPHILS # (AUTO) 0.1 X10'3 (0-0.9); EOSINOPHILS % (AUTO) 1.1 % (0-6); HEMATOCRIT 30.4 % (35.0-45.0); HEMOGLOBIN 10.1 g/dl (12.0-16.0); LYMPHOCYTES # (AUTO) 2.5 X10'3 (1.1-4.8); LYMPHOCYTES % (AUTO) 22.1 % (21-51); MEAN CORPUSCULAR HGB CONC 33.3 % (33.0-36.5); MEAN PLATELET VOLUME 10.8 FL (7.4-10.4); MONOCYTES # (AUTO) 0.9 X10'3 (0-0.9); MONOCYTES % (AUTO) 7.5 % (2-12); NEUTROPHILS # (AUTO) 7.9 X10'3 (1.8-7.7); NEUTROPHILS % (AUTO) 68.8 % (42-75); PLATELET COUNT 173 X10'3 (140-440); RED BLOOD COUNT 3.07 X10'6 (4.20-5.60); RED CELL DISTRIBUTION WIDTH 14.9 % (11.5-14.5); WHITE BLOOD COUNT 11.5 X10'3 (4.5-11.0)
[2017-09-04 02:56] LABS: INR 1.2 INR; PARTIAL THROMBOPLASTIN TIME 32 SECONDS (22-32); PROTHROMBIN TIME 12.1 SECONDS (9.0-12.0)
[2017-09-04 03:04] LABS: ALANINE AMINOTRANSFERASE 30 U/L (12-78); ALBUMIN 2.1 G/DL (3.4-5.0); ALBUMIN/GLOBULIN RATIO 0.7 (1.1-1.5); ALKALINE PHOSPHATASE 80 IU/L (46-116); ANION GAP 4 (8-16); ASPARTATE AMINO TRANSFERASE 17 U/L (10-37); BILIRUBIN,TOTAL 0.6 MG/DL (0.1-1.0); BLOOD UREA NITROGEN 16 MG/DL (7-18); BUN/CREATININE RATIO 23.5 (6.6-38.0); CALCIUM 8.3 MG/DL (8.5-10.1); CHLORIDE 108 MMOL/L (99-107); CREATININE 0.68 MG/DL (0.40-0.90); GLUCOSE 106 MG/DL (70-104); MAGNESIUM 1.8 MG/DL (1.5-2.4); PHOSPHORUS 2.6 MG/DL (2.3-4.5); SODIUM 140 MMOL/L (135-145); TOTAL CARBON DIOXIDE 27.7 MMOL/L (24-32); TOTAL PROTEIN 5.3 G/DL (6.4-8.2); eGFR 86 ML/MIN
[2017-09-04] MEDS: valproate sod 250mg/5ml UD oral syrup PO SCH ×4 (07:51→20:06)
[2017-09-04] MEDS: apixaban 5mg tablet PO SCH ×2 (07:51→20:06)
[2017-09-04] MEDS: pantoprazole 40mg Tablet.DR PO SCH (07:51)
[2017-09-04] MEDS: LORazepam 0.5 MG tablet PO SCH ×2 (07:51→20:05)
[2017-09-04] MEDS: nicotine 21mg patch - 24 hr TD SCH (07:52)
[2017-09-04] MEDS: haloperidol 1mg tablet PO SCH ×2 (07:57→20:05)
[2017-09-04] MEDS: metoprolol tartrate 50mg tablet PO SCH ×2 (08:00→20:00)
[2017-09-04] MEDS: K, MAG and/or Phos replacement - Verify level? MC SCH (08:00)
[2017-09-04] MEDS: aspirin 325mg tablet PO SCH (12:14)
[2017-09-04] MEDS: quetiapine 100mg tablet PO SCH (20:05)
[2017-09-05 04:33] LABS: BASOPHILS # (AUTO) 0.1 X10'3 (0-0.2); BASOPHILS % (AUTO) 0.5 % (0-1); EOSINOPHILS # (AUTO) 0.2 X10'3 (0-0.9); EOSINOPHILS % (AUTO) 1.6 % (0-6); HEMATOCRIT 26.7 % (35.0-45.0); LYMPHOCYTES # (AUTO) 2.8 X10'3 (1.1-4.8); LYMPHOCYTES % (AUTO) 28.9 % (21-51); MEAN CORPUSCULAR HEMOGLOBIN 33.3 PG (27.0-31.0); MEAN CORPUSCULAR HGB CONC 33.8 % (33.0-36.5); MEAN CORPUSCULAR VOLUME 98.7 FL (78-98); MEAN PLATELET VOLUME 11.3 FL (7.4-10.4); MONOCYTES # (AUTO) 0.9 X10'3 (0-0.9); MONOCYTES % (AUTO) 9.7 % (2-12); NEUTROPHILS # (AUTO) 5.6 X10'3 (1.8-7.7); NEUTROPHILS % (AUTO) 59.3 % (42-75); PLATELET COUNT 159 X10'3 (140-440); RED BLOOD COUNT 2.71 X10'6 (4.20-5.60); RED CELL DISTRIBUTION WIDTH 14.9 % (11.5-14.5); WHITE BLOOD COUNT 9.5 X10'3 (4.5-11.0)
[2017-09-05 04:46] LABS: INR 1.2 INR; PARTIAL THROMBOPLASTIN TIME 30 SECONDS (22-32)
[2017-09-05 05:07] LABS: ALANINE AMINOTRANSFERASE 26 U/L (12-78); ALBUMIN/GLOBULIN RATIO 0.6 (1.1-1.5); ALKALINE PHOSPHATASE 72 IU/L (46-116); ANION GAP 8 (8-16); ASPARTATE AMINO TRANSFERASE 17 U/L (10-37); BILIRUBIN,TOTAL 0.6 MG/DL (0.1-1.0); BLOOD UREA NITROGEN 13 MG/DL (7-18); CALCIUM 8.4 MG/DL (8.5-10.1); CHLORIDE 108 MMOL/L (99-107); CHOL/HDL RATIO 5.4 (0.00-4.99); CHOLESTEROL 130 MG/DL (0-200); CREATININE 0.65 MG/DL (0.40-0.90); GLUCOSE 93 MG/DL (70-104); HDL CHOLESTEROL 24 MG/DL (35-60); LDL CHOLESTEROL 85 MG/DL (50-100); MAGNESIUM 1.8 MG/DL (1.5-2.4); POTASSIUM 3.2 MMOL/L (3.5-5.1); SODIUM 144 MMOL/L (135-145); TOTAL CARBON DIOXIDE 28.2 MMOL/L (24-32); TOTAL PROTEIN 5.2 G/DL (6.4-8.2); TRIGLYCERIDES 96 MG/DL (20-135); eGFR > 90 ML/MIN
[2017-09-05 07:00] VITALS: BP 130/60
[2017-09-05 07:00] LABS: LARGE PLATELETS FEW; PLATELET ESTIMATE NORMAL
[2017-09-05] MEDS: K, MAG and/or Phos replacement - Verify level? MC SCH (08:00)
[2017-09-05] MEDS: aspirin 325mg tablet PO SCH (09:25)
[2017-09-05] MEDS: haloperidol 1mg tablet PO SCH ×2 (09:25→20:25)
[2017-09-05] MEDS: metoprolol tartrate 50mg tablet PO SCH ×2 (09:25→20:25)
[2017-09-05] MEDS: pantoprazole 40mg Tablet.DR PO SCH (09:25)
[2017-09-05] MEDS: LORazepam 0.5 MG tablet PO SCH ×2 (09:25→20:26)
[2017-09-05] MEDS: apixaban 5mg tablet PO SCH ×2 (09:25→20:25)
[2017-09-05] MEDS: valproate sod 250mg/5ml UD oral syrup PO SCH ×4 (09:26→20:24)
[2017-09-05] MEDS: nicotine 21mg patch - 24 hr TD SCH (09:27)
[2017-09-05 11:30] VITALS: BP 125/54
[2017-09-05] MEDS: potassium Cl 20 mEq SR tablet PO PRN ×2 (14:25→20:24)
[2017-09-05 20:00] VITALS: BP 132/54
[2017-09-05] MEDS: quetiapine 100mg tablet PO SCH (20:25)
[2017-09-06] VITALS: BP 131/54
[2017-09-06 04:34] LABS: BASOPHILS % (AUTO) 0.3 % (0-1); EOSINOPHILS # (AUTO) 0.3 X10'3 (0-0.9); EOSINOPHILS % (AUTO) 2.8 % (0-6); HEMATOCRIT 27.1 % (35.0-45.0); HEMOGLOBIN 9.1 g/dl (12.0-16.0); LYMPHOCYTES # (AUTO) 2.7 X10'3 (1.1-4.8); LYMPHOCYTES % (AUTO) 28.2 % (21-51); MEAN CORPUSCULAR HEMOGLOBIN 32.9 PG (27.0-31.0); MEAN CORPUSCULAR HGB CONC 33.6 % (33.0-36.5); MEAN CORPUSCULAR VOLUME 97.9 FL (78-98); MEAN PLATELET VOLUME 11.3 FL (7.4-10.4); MONOCYTES % (AUTO) 10.2 % (2-12); NEUTROPHILS # (AUTO) 5.7 X10'3 (1.8-7.7); NEUTROPHILS % (AUTO) 58.5 % (42-75); RED BLOOD COUNT 2.77 X10'6 (4.20-5.60); RED CELL DISTRIBUTION WIDTH 15.1 % (11.5-14.5); WHITE BLOOD COUNT 9.8 X10'3 (4.5-11.0)
[2017-09-06 04:55] LABS: INR 1.2 INR; PARTIAL THROMBOPLASTIN TIME 31 SECONDS (22-32); PLATELET COUNT 190 X10'3 (140-440)
[2017-09-06 06:25] LABS: ALANINE AMINOTRANSFERASE 27 U/L (12-78); ALBUMIN 2.1 G/DL (3.4-5.0); ALBUMIN/GLOBULIN RATIO 0.6 (1.1-1.5); ALKALINE PHOSPHATASE 82 IU/L (46-116); ANION GAP 9 (8-16); ASPARTATE AMINO TRANSFERASE 22 U/L (10-37); BILIRUBIN,TOTAL 0.6 MG/DL (0.1-1.0); BLOOD UREA NITROGEN 11 MG/DL (7-18); BUN/CREATININE RATIO 13.9 (6.6-38.0); CALCIUM 8.7 MG/DL (8.5-10.1); CHLORIDE 108 MMOL/L (99-107); CREATININE 0.79 MG/DL (0.40-0.90); GLUCOSE 110 MG/DL (70-104); MAGNESIUM 1.7 MG/DL (1.5-2.4); PHOSPHORUS 3.2 MG/DL (2.3-4.5); SODIUM 143 MMOL/L (135-145); TOTAL CARBON DIOXIDE 26.1 MMOL/L (24-32); TOTAL PROTEIN 5.4 G/DL (6.4-8.2); eGFR 73 ML/MIN
[2017-09-06] MEDS: K, MAG and/or Phos replacement - Verify level? MC SCH (07:38)
[2017-09-06] MEDS: valproate sod 250mg/5ml UD oral syrup PO SCH ×4 (07:40→21:20)
[2017-09-06] MEDS: LORazepam 0.5 MG tablet PO SCH ×2 (07:41→20:00)
[2017-09-06] MEDS: aspirin 325mg tablet PO SCH (07:41)
[2017-09-06] MEDS: haloperidol 1mg tablet PO SCH ×2 (07:41→21:19)
[2017-09-06] MEDS: metoprolol tartrate 50mg tablet PO SCH ×2 (07:44→21:20)
[2017-09-06] MEDS: pantoprazole 40mg Tablet.DR PO SCH (07:44)
[2017-09-06] MEDS: apixaban 5mg tablet PO SCH ×2 (07:44→21:20)
[2017-09-06] MEDS: nicotine 21mg patch - 24 hr TD SCH (07:45)
[2017-09-06 11:51] VITALS: BP 106/50
[2017-09-06] MEDS ORDERED: PANT40TA4 PO (13:33)
[2017-09-06] MEDS ORDERED: VALP250C44 PO (13:33)
[2017-09-06] MEDS ORDERED: NICO-687 TD (13:33)
[2017-09-06] MEDS ORDERED: HALO2TAB PO (13:33)
[2017-09-06] MEDS ORDERED: TRAZ-218 PO (13:33)
[2017-09-06] MEDS ORDERED: APIX5TAB3 PO (13:33)
[2017-09-06] MEDS ORDERED: QUET100T33 PO (13:33)
[2017-09-06 19:00] VITALS: BP 126/60
[2017-09-06] MEDS: LORazepam 1 MG tablet PO PRN (21:18)
[2017-09-06] MEDS: quetiapine 100mg tablet PO SCH (21:20)
[2017-09-07] VITALS: BP 128/67
[2017-09-07 05:52] LABS: BASOPHILS % (AUTO) 0.5 % (0-1); EOSINOPHILS # (AUTO) 0.2 X10'3 (0-0.9); EOSINOPHILS % (AUTO) 2.6 % (0-6); HEMATOCRIT 27.7 % (35.0-45.0); HEMOGLOBIN 9.1 g/dl (12.0-16.0); LYMPHOCYTES # (AUTO) 3.2 X10'3 (1.1-4.8); LYMPHOCYTES % (AUTO) 35.5 % (21-51); MEAN CORPUSCULAR HEMOGLOBIN 32.7 PG (27.0-31.0); MEAN CORPUSCULAR VOLUME 99.3 FL (78-98); MEAN PLATELET VOLUME 11.3 FL (7.4-10.4); MONOCYTES # (AUTO) 0.8 X10'3 (0-0.9); MONOCYTES % (AUTO) 8.8 % (2-12); NEUTROPHILS # (AUTO) 4.7 X10'3 (1.8-7.7); NEUTROPHILS % (AUTO) 52.6 % (42-75); PLATELET COUNT 198 X10'3 (140-440); RED BLOOD COUNT 2.79 X10'6 (4.20-5.60); RED CELL DISTRIBUTION WIDTH 14.8 % (11.5-14.5); WHITE BLOOD COUNT 8.9 X10'3 (4.5-11.0)
[2017-09-07 06:02] LABS: INR 1.2 INR; PARTIAL THROMBOPLASTIN TIME 28 SECONDS (22-32); PROTHROMBIN TIME 11.9 SECONDS (9.0-12.0)
[2017-09-07 06:07] LABS: ALANINE AMINOTRANSFERASE 28 U/L (12-78); ALBUMIN 2.1 G/DL (3.4-5.0); ALBUMIN/GLOBULIN RATIO 0.6 (1.1-1.5); ALKALINE PHOSPHATASE 84 IU/L (46-116); ANION GAP 7 (8-16); ASPARTATE AMINO TRANSFERASE 16 U/L (10-37); BILIRUBIN,TOTAL 0.8 MG/DL (0.1-1.0); BLOOD UREA NITROGEN 11 MG/DL (7-18); BUN/CREATININE RATIO 15.1 (6.6-38.0); CALCIUM 8.8 MG/DL (8.5-10.1); CHLORIDE 107 MMOL/L (99-107); CREATININE 0.73 MG/DL (0.40-0.90); GLUCOSE 110 MG/DL (70-104); MAGNESIUM 1.8 MG/DL (1.5-2.4); PHOSPHORUS 3.9 MG/DL (2.3-4.5); POTASSIUM 3.6 MMOL/L (3.5-5.1); SODIUM 142 MMOL/L (135-145); TOTAL CARBON DIOXIDE 27.9 MMOL/L (24-32); TOTAL PROTEIN 5.5 G/DL (6.4-8.2); eGFR 80 ML/MIN
[2017-09-07 06:53] LABS: LARGE PLATELETS FEW; PLATELET ESTIMATE NORMAL
[2017-09-07 07:00] VITALS: BP 120/45
[2017-09-07] MEDS ORDERED: methylnaltrexone br 12mg/0.6ml inj***SubQ only SQ SCH (08:00)
[2017-09-07] MEDS: K, MAG and/or Phos replacement - Verify level? MC SCH (08:00)
[2017-09-07] MEDS: pantoprazole 40mg Tablet.DR PO SCH (08:35)
[2017-09-07] MEDS: LORazepam 0.5 MG tablet PO SCH (08:35)
[2017-09-07] MEDS: apixaban 5mg tablet PO SCH (08:35)
[2017-09-07] MEDS: aspirin 325mg tablet PO SCH (08:35)
[2017-09-07] MEDS: valproate sod 250mg/5ml UD oral syrup PO SCH ×2 (08:35→13:30)
[2017-09-07] MEDS: haloperidol 1mg tablet PO SCH (08:35)
[2017-09-07] MEDS: nicotine 21mg patch - 24 hr TD SCH (08:35)
[2017-09-07] MEDS: metoprolol tartrate 50mg tablet PO SCH (08:35)
[2017-09-07 11:00] VITALS: BP 121/55
[2017-09-07] MEDS ORDERED: ASPI-1 PO (12:39)
== END 2017-09-07 13:46 | DRG 252 ==
LOC: ICU 2S 13:33 → SUR 3N 09-04 21:00
PROVIDERS: ADMIT Internal Medicine Critical Care Medicine; ATTEND Family Medicine
PROC: 5A1935Z Respiratory Ventilation, Less than 24 Consecutive Hours (ICD-10-PCS; 2017-09-02)
PROC: 03C90ZZ Extirpation of Matter from Right Ulnar Artery, Open Approach (ICD-10-PCS; 2017-09-02)
PROC: B32T1ZZ Computerized Tomography (CT Scan) of Left Pulmonary Artery using Low Osmolar Contrast (ICD-10-PCS; 2017-09-02)
PROC: B3201ZZ Computerized Tomography (CT Scan) of Thoracic Aorta using Low Osmolar Contrast (ICD-10-PCS; 2017-09-02)
PROC: B32S1ZZ Computerized Tomography (CT Scan) of Right Pulmonary Artery using Low Osmolar Contrast (ICD-10-PCS; 2017-09-02)
PROC: BP2T1ZZ Computerized Tomography (CT Scan) of Right Upper Extremity using Low Osmolar Contrast (ICD-10-PCS; 2017-09-02)
PROC: 0BH17EZ Insertion of Endotracheal Airway into Trachea, Via Natural or Artificial Opening (ICD-10-PCS; 2017-09-02)
PROC: 03CB0ZZ Extirpation of Matter from Right Radial Artery, Open Approach (ICD-10-PCS; principal; 2017-09-02 18:15)
DX: I74.2 Embolism and thrombosis of arteries of the upper extremities (principal); J96.01 Acute respiratory failure with hypoxia; R65.10 Systemic inflammatory response syndrome (SIRS) of non-infectious origin without acute organ dysfunction; F20.9 Schizophrenia, unspecified; E87.6 Hypokalemia; I73.9 Peripheral vascular disease, unspecified; F29 Unspecified psychosis not due to a substance or known physiological condition; D64.9 Anemia, unspecified; I10 Essential (primary) hypertension; F17.200 Nicotine dependence, unspecified, uncomplicated; Z79.899 Other long term (current) drug therapy
CPT/HCPCS: 36415; 36600; 71045; 71275; 73206; 80053; 80061; 81001; 82803; 82948; 83605; 83735; 84100; 84132; 84439; 84443; 84484; 85018; 85025; 85610; 85730; 93005; 93306; 93880; 93922; 93925; 93931; 93970; 94002; 94003; 94660; 94760; 97116; 97161; A6212; A6213; A6250; A6257; A6258; A6402; A6446; A6449; A7000; C1758; C9113; J0690; J1644; J1940; J2060; J2250; J3010; J3480; J7030; Q9967

== ENCOUNTER 2017-09-07 14:49 | Inpatient (IN) | payer MEDICARE, MEDICAID ==
[~2017-09-07] VITALS: Ht 160 cm; Wt 78.8 kg
[~2017-09-07 14:49] MED LIST changes: +APIX5TAB3 PO; +ASPI-1 PO; +HALO2TAB PO; +NICO-687 TD; +PANT40TA4 PO; +QUET100T33 PO; +TRAZ-218 PO; +VALP250C44 PO
[2017-09-07] MEDS ORDERED: mag hydrox/Alum hydrox/simeth 30ml oral suspension PO PRN (15:30)
[2017-09-07] MEDS ORDERED: LORazepam 1 MG tablet PO PRN (15:30)
[2017-09-07] MEDS ORDERED: hydrOXYzine 25 MG tablet PO PRN (15:30)
[2017-09-07] MEDS ORDERED: magnesium hydroxide 30ml (MOM) UD suspension PO PRN (15:30)
[2017-09-07] MEDS ORDERED: morphine 4 MG/ML inj SYRINge IV PRN (15:30)
[2017-09-07 16:10] VITALS: BP 129/53
[2017-09-07] MEDS: valproate sod 250mg/5ml UD oral syrup PO SCH ×2 (17:50→20:23)
[2017-09-07] MEDS: acetaminophen 325mg tablet PO PRN (19:34)
[2017-09-07] MEDS: metoprolol tartrate 50mg tablet PO SCH (20:00)
[2017-09-07] MEDS: LORazepam 0.5 MG tablet PO SCH (20:19)
[2017-09-07] MEDS: traZODone 50mg tablet PO SCH (20:21)
[2017-09-07] MEDS: haloperidol 1mg tablet PO SCH (20:21)
[2017-09-07] MEDS: quetiapine 100mg tablet PO SCH (20:22)
[2017-09-07] MEDS: apixaban 5mg tablet PO SCH (20:22)
[2017-09-07 21:41] LABS: CLARITY,URINE CLEAR (Clear); COLOR,URINE YELLOW (Yellow); GLUCOSE, URINE NEGATIVE (Neg); KETONES,URINE NEGATIVE (Neg); LEUKOCYTE ESTERASE ,URINE NEGATIVE (Neg); NITRITES, URINE NEGATIVE (Neg); OCCULT BLOOD,URINE TRACE-LYSED (Neg); PROTEIN,URINE NEGATIVE (Neg); UROBILINOGEN,URINE 0.2 E.U/dL (0.2-1.0)
[2017-09-07 21:50] LABS: UA COLLECTION TYPE NON-SPECIFIED
[2017-09-07 21:52] LABS: BACTERIA,URINE FEW /HPF (Neg); SQUAMOUS EPITHELIAL CELL,UR FEW /LPF (FEW); WBC,URINE NONE SEEN /HPF (0-4)
[2017-09-07 22:40] VITALS: BP 124/50
[2017-09-07 23:19] LABS: BASOPHILS # (AUTO) 0.1 X10'3 (0-0.2); BASOPHILS % (AUTO) 0.6 % (0-1); EOSINOPHILS # (AUTO) 0.2 X10'3 (0-0.9); EOSINOPHILS % (AUTO) 2.1 % (0-6); HEMOGLOBIN 9.9 g/dl (12.0-16.0); LYMPHOCYTES # (AUTO) 3.1 X10'3 (1.1-4.8); LYMPHOCYTES % (AUTO) 32.4 % (21-51); MEAN CORPUSCULAR HEMOGLOBIN 33.3 PG (27.0-31.0); MEAN CORPUSCULAR HGB CONC 33.1 % (33.0-36.5); MEAN CORPUSCULAR VOLUME 100.7 FL (78-98); MEAN PLATELET VOLUME 11.2 FL (7.4-10.4); MONOCYTES # (AUTO) 0.9 X10'3 (0-0.9); MONOCYTES % (AUTO) 9.2 % (2-12); NEUTROPHILS # (AUTO) 5.2 X10'3 (1.8-7.7); NEUTROPHILS % (AUTO) 55.7 % (42-75); PLATELET COUNT 210 X10'3 (140-440); RED BLOOD COUNT 2.98 X10'6 (4.20-5.60); RED CELL DISTRIBUTION WIDTH 14.4 % (11.5-14.5); WHITE BLOOD COUNT 9.4 X10'3 (4.5-11.0)
[2017-09-07 23:20] LABS: ALBUMIN 2.3 G/DL (3.4-5.0); ANION GAP 8 (8-16); BLOOD UREA NITROGEN 13 MG/DL (7-18); BUN/CREATININE RATIO 15.9 (6.6-38.0); CALCIUM 8.8 MG/DL (8.5-10.1); CHLORIDE 106 MMOL/L (99-107); CREATININE 0.82 MG/DL (0.40-0.90); GLUCOSE 117 MG/DL (70-104); POTASSIUM 3.7 MMOL/L (3.5-5.1); SODIUM 142 MMOL/L (135-145); TOTAL CARBON DIOXIDE 28.3 MMOL/L (24-32); eGFR 70 ML/MIN
[2017-09-08] MEDS: metoprolol tartrate 50mg tablet PO SCH ×2 (08:07→20:15)
[2017-09-08] MEDS: valproate sod 250mg/5ml UD oral syrup PO SCH ×4 (08:07→20:14)
[2017-09-08] MEDS: haloperidol 1mg tablet PO SCH ×2 (08:07→20:15)
[2017-09-08] MEDS: apixaban 5mg tablet PO SCH ×2 (08:07→20:15)
[2017-09-08] MEDS: pantoprazole 40mg Tablet.DR PO SCH (08:07)
[2017-09-08] MEDS: LORazepam 0.5 MG tablet PO SCH ×2 (08:07→20:15)
[2017-09-08] MEDS: nicotine 21mg patch - 24 hr TD SCH (08:10)
[2017-09-08 08:19] LABS: HEMOGLOBIN A1C 6.1 % (4.5-6.2)
[2017-09-08] MEDS ORDERED: aspirin 325mg tablet PO SCH (08:30)
[2017-09-08 08:32] VITALS: BP 134/51
[2017-09-08 08:37] LABS: CHOL/HDL RATIO 7.5 (0.00-4.99); CHOLESTEROL 172 MG/DL (0-200); HDL CHOLESTEROL 23 MG/DL (35-60); LDL CHOLESTEROL 119 MG/DL (50-100); TRIGLYCERIDES 131 MG/DL (20-135); VALPROATE 70 UG/ML (50-100)
[2017-09-08] MEDS: ceFAZolin 1GM/D5W- ADD-VANTAGE 50 ML IV SCH ×2 (16:12→23:50)
[2017-09-08 19:00] VITALS: BP 128/61
[2017-09-08] MEDS: traZODone 50mg tablet PO SCH (20:14)
[2017-09-08] MEDS: quetiapine 100mg tablet PO SCH (20:15)
[2017-09-09] MEDS: ceFAZolin 1GM/D5W- ADD-VANTAGE 50 ML IV SCH ×2 (07:42→16:18)
[2017-09-09] MEDS: nicotine 21mg patch - 24 hr TD SCH (07:51)
[2017-09-09] MEDS: haloperidol 1mg tablet PO SCH ×2 (07:52→20:44)
[2017-09-09] MEDS: metoprolol tartrate 50mg tablet PO SCH ×2 (07:52→20:44)
[2017-09-09] MEDS: aspirin 81mg tab.chew PO SCH (07:52)
[2017-09-09] MEDS: valproate sod 250mg/5ml UD oral syrup PO SCH ×4 (07:52→20:44)
[2017-09-09] MEDS: pantoprazole 40mg Tablet.DR PO SCH (07:52)
[2017-09-09] MEDS: apixaban 5mg tablet PO SCH ×2 (07:53→20:44)
[2017-09-09] MEDS: atorvastatin 20mg tablet PO SCH (07:53)
[2017-09-09] MEDS: LORazepam 0.5 MG tablet PO SCH ×2 (07:53→20:44)
[2017-09-09 08:00] VITALS: BP 123/73
[2017-09-09 10:00] LABS: BASOPHILS % (AUTO) 0.3 % (0-1); EOSINOPHILS # (AUTO) 0.2 X10'3 (0-0.9); EOSINOPHILS % (AUTO) 2.5 % (0-6); HEMATOCRIT 31.2 % (35.0-45.0); HEMOGLOBIN 10.3 g/dl (12.0-16.0); LYMPHOCYTES # (AUTO) 2.7 X10'3 (1.1-4.8); LYMPHOCYTES % (AUTO) 29.8 % (21-51); MEAN CORPUSCULAR HGB CONC 32.9 % (33.0-36.5); MEAN CORPUSCULAR VOLUME 100.1 FL (78-98); MEAN PLATELET VOLUME 11.5 FL (7.4-10.4); MONOCYTES # (AUTO) 0.6 X10'3 (0-0.9); MONOCYTES % (AUTO) 6.9 % (2-12); NEUTROPHILS # (AUTO) 5.5 X10'3 (1.8-7.7); NEUTROPHILS % (AUTO) 60.5 % (42-75); PLATELET COUNT 234 X10'3 (140-440); RED BLOOD COUNT 3.12 X10'6 (4.20-5.60); RED CELL DISTRIBUTION WIDTH 15.2 % (11.5-14.5)
[2017-09-09 10:04] LABS: ALANINE AMINOTRANSFERASE 22 U/L (12-78); ALBUMIN 2.4 G/DL (3.4-5.0); ALBUMIN/GLOBULIN RATIO 0.6 (1.1-1.5); ALKALINE PHOSPHATASE 91 IU/L (46-116); ANION GAP 8 (8-16); ASPARTATE AMINO TRANSFERASE 14 U/L (10-37); BILIRUBIN,TOTAL 0.7 MG/DL (0.1-1.0); BLOOD UREA NITROGEN 12 MG/DL (7-18); BUN/CREATININE RATIO 15.2 (6.6-38.0); CALCIUM 8.6 MG/DL (8.5-10.1); CHLORIDE 105 MMOL/L (99-107); CREATININE 0.79 MG/DL (0.40-0.90); GLUCOSE 142 MG/DL (70-104); POTASSIUM 3.8 MMOL/L (3.5-5.1); SODIUM 139 MMOL/L (135-145); TOTAL CARBON DIOXIDE 25.8 MMOL/L (24-32); TOTAL PROTEIN 6.1 G/DL (6.4-8.2); eGFR 73 ML/MIN
[2017-09-09 10:26] LABS: LARGE PLATELETS MODERATE; PLATELET ESTIMATE NORMAL
[2017-09-09 19:00] VITALS: BP 146/54
[2017-09-09] MEDS: quetiapine 100mg tablet PO SCH (20:44)
[2017-09-09] MEDS: traZODone 50mg tablet PO SCH (20:44)
[2017-09-09] MEDS: lactobacillus rhamnosus 10,000 MMU CELLS/CAPSULE PO SCH (20:44)
[2017-09-10] MEDS: ceFAZolin 1GM/D5W- ADD-VANTAGE 50 ML IV SCH ×4 (00:03→23:34)
[2017-09-10] MEDS: pantoprazole 40mg Tablet.DR PO SCH (07:44)
[2017-09-10] MEDS: acetaminophen 325mg tablet PO PRN ×2 (07:45→23:19)
[2017-09-10 08:00] VITALS: BP 131/51
[2017-09-10] MEDS: nicotine 21mg patch - 24 hr TD SCH (08:20)
[2017-09-10] MEDS: lactobacillus rhamnosus 10,000 MMU CELLS/CAPSULE PO SCH ×2 (08:21→21:18)
[2017-09-10] MEDS: valproate sod 250mg/5ml UD oral syrup PO SCH ×4 (08:21→21:21)
[2017-09-10] MEDS: metoprolol tartrate 50mg tablet PO SCH ×2 (08:21→21:21)
[2017-09-10] MEDS: haloperidol 1mg tablet PO SCH ×2 (08:21→21:18)
[2017-09-10] MEDS: atorvastatin 20mg tablet PO SCH (08:21)
[2017-09-10] MEDS: aspirin 81mg tab.chew PO SCH (08:21)
[2017-09-10] MEDS: LORazepam 0.5 MG tablet PO SCH ×2 (08:21→21:21)
[2017-09-10] MEDS: apixaban 5mg tablet PO SCH ×2 (08:21→21:18)
[2017-09-10 20:28] VITALS: BP 157/60
[2017-09-10] MEDS: quetiapine 100mg tablet PO SCH (21:18)
[2017-09-10] MEDS: traZODone 50mg tablet PO SCH (21:18)
[2017-09-11 08:00] VITALS: BP 118/48
[2017-09-11] MEDS: metoprolol tartrate 50mg tablet PO SCH (08:00)
[2017-09-11] MEDS: lactobacillus rhamnosus 10,000 MMU CELLS/CAPSULE PO SCH ×2 (08:33→21:01)
[2017-09-11] MEDS: valproate sod 250mg/5ml UD oral syrup PO SCH ×4 (08:33→21:00)
[2017-09-11] MEDS: atorvastatin 20mg tablet PO SCH (08:33)
[2017-09-11] MEDS: LORazepam 0.5 MG tablet PO SCH ×2 (08:33→21:01)
[2017-09-11] MEDS: haloperidol 1mg tablet PO SCH ×2 (08:34→21:02)
[2017-09-11] MEDS: apixaban 5mg tablet PO SCH ×2 (08:34→21:02)
[2017-09-11] MEDS: nicotine 21mg patch - 24 hr TD SCH (08:34)
[2017-09-11] MEDS: aspirin 81mg tab.chew PO SCH (08:34)
[2017-09-11] MEDS: pantoprazole 40mg Tablet.DR PO SCH (08:34)
[2017-09-11] MEDS: ceFAZolin 1GM/D5W- ADD-VANTAGE 50 ML IV SCH ×3 (08:41→23:49)
[2017-09-11] MEDS: metoprolol tartrate 25mg tablet PO SCH ×2 (09:32→21:01)
[2017-09-11] MEDS: acetaminophen 325mg tablet PO PRN (17:54)
[2017-09-11 19:44] VITALS: BP 151/50
[2017-09-11] MEDS ORDERED: metoprolol tartrate 50mg tablet PO SCH (20:00)
[2017-09-11] MEDS: quetiapine 100mg tablet PO SCH (21:01)
[2017-09-11] MEDS: traZODone 50mg tablet PO SCH (21:01)
[2017-09-12] MEDS: pantoprazole 40mg Tablet.DR PO SCH (07:52)
[2017-09-12 08:00] VITALS: BP 143/63
[2017-09-12] MEDS: atorvastatin 20mg tablet PO SCH (08:11)
[2017-09-12] MEDS: nicotine 21mg patch - 24 hr TD SCH (08:11)
[2017-09-12] MEDS: lactobacillus rhamnosus 10,000 MMU CELLS/CAPSULE PO SCH ×2 (08:11→20:29)
[2017-09-12] MEDS: aspirin 81mg tab.chew PO SCH (08:11)
[2017-09-12] MEDS: valproate sod 250mg/5ml UD oral syrup PO SCH ×4 (08:11→20:28)
[2017-09-12] MEDS: haloperidol 1mg tablet PO SCH ×2 (08:11→20:29)
[2017-09-12] MEDS: metoprolol tartrate 25mg tablet PO SCH ×2 (08:11→20:29)
[2017-09-12] MEDS: apixaban 5mg tablet PO SCH ×2 (08:12→20:29)
[2017-09-12] MEDS: LORazepam 0.5 MG tablet PO SCH ×2 (08:12→20:29)
[2017-09-12] MEDS: ceFAZolin 1GM/D5W- ADD-VANTAGE 50 ML IV SCH ×3 (08:35→23:59)
[2017-09-12 19:59] VITALS: BP 160/60
[2017-09-12] MEDS: traZODone 50mg tablet PO SCH (20:28)
[2017-09-12] MEDS: quetiapine 100mg tablet PO SCH (20:29)
[2017-09-13] MEDS: valproate sod 250mg/5ml UD oral syrup PO SCH ×4 (07:32→21:16)
[2017-09-13] MEDS: lactobacillus rhamnosus 10,000 MMU CELLS/CAPSULE PO SCH ×2 (07:32→21:16)
[2017-09-13] MEDS: acetaminophen 325mg tablet PO PRN ×2 (07:32→21:18)
[2017-09-13] MEDS: atorvastatin 20mg tablet PO SCH (07:33)
[2017-09-13] MEDS: apixaban 5mg tablet PO SCH ×2 (07:33→21:15)
[2017-09-13] MEDS: pantoprazole 40mg Tablet.DR PO SCH (07:33)
[2017-09-13] MEDS: LORazepam 0.5 MG tablet PO SCH ×2 (07:33→21:16)
[2017-09-13] MEDS: haloperidol 1mg tablet PO SCH ×2 (07:33→21:15)
[2017-09-13] MEDS: nicotine 21mg patch - 24 hr TD SCH (07:36)
[2017-09-13] MEDS: metoprolol tartrate 25mg tablet PO SCH ×2 (07:36→21:15)
[2017-09-13 08:00] VITALS: BP 129/50
[2017-09-13] MEDS: aspirin 81mg tab.chew PO SCH (08:30)
[2017-09-13] MEDS: ceFAZolin 1GM/D5W- ADD-VANTAGE 50 ML IV SCH ×3 (09:55→23:55)
[2017-09-13 19:00] VITALS: BP 160/60
[2017-09-13] MEDS: quetiapine 100mg tablet PO SCH (21:15)
[2017-09-13] MEDS: traZODone 50mg tablet PO SCH (21:16)
[2017-09-14] MEDS: pantoprazole 40mg Tablet.DR PO SCH (07:31)
[2017-09-14] MEDS: atorvastatin 20mg tablet PO SCH (07:32)
[2017-09-14] MEDS: haloperidol 1mg tablet PO SCH ×2 (07:32→20:38)
[2017-09-14] MEDS: nicotine 21mg patch - 24 hr TD SCH (07:32)
[2017-09-14] MEDS: LORazepam 0.5 MG tablet PO SCH ×2 (07:32→20:36)
[2017-09-14] MEDS: valproate sod 250mg/5ml UD oral syrup PO SCH ×4 (07:33→20:38)
[2017-09-14] MEDS: ceFAZolin 1GM/D5W- ADD-VANTAGE 50 ML IV SCH ×2 (07:33→16:23)
[2017-09-14] MEDS: metoprolol tartrate 25mg tablet PO SCH ×2 (07:33→20:38)
[2017-09-14] MEDS: apixaban 5mg tablet PO SCH ×2 (07:33→20:37)
[2017-09-14] MEDS: lactobacillus rhamnosus 10,000 MMU CELLS/CAPSULE PO SCH ×2 (07:33→20:37)
[2017-09-14] MEDS: aspirin 81mg tab.chew PO SCH (07:37)
[2017-09-14 08:00] VITALS: BP 135/51
[2017-09-14 19:00] VITALS: BP 138/81
[2017-09-14] MEDS: traZODone 50mg tablet PO SCH (20:37)
[2017-09-14] MEDS: quetiapine 100mg tablet PO SCH (20:38)
[2017-09-14] MEDS: acetaminophen 325mg tablet PO PRN (20:42)
[2017-09-15] MEDS: ceFAZolin 1GM/D5W- ADD-VANTAGE 50 ML IV SCH ×2 (00:21→07:51)
[2017-09-15] MEDS: metoprolol tartrate 25mg tablet PO SCH (07:47)
[2017-09-15] MEDS: aspirin 81mg tab.chew PO SCH (07:48)
[2017-09-15] MEDS: pantoprazole 40mg Tablet.DR PO SCH (07:48)
[2017-09-15] MEDS: lactobacillus rhamnosus 10,000 MMU CELLS/CAPSULE PO SCH (07:48)
[2017-09-15] MEDS: apixaban 5mg tablet PO SCH (07:48)
[2017-09-15] MEDS: haloperidol 1mg tablet PO SCH (07:49)
[2017-09-15] MEDS: valproate sod 250mg/5ml UD oral syrup PO SCH ×2 (07:50→12:36)
[2017-09-15] MEDS: atorvastatin 20mg tablet PO SCH (07:50)
[2017-09-15] MEDS: nicotine 21mg patch - 24 hr TD SCH (07:51)
[2017-09-15] MEDS: LORazepam 0.5 MG tablet PO SCH (07:51)
[2017-09-15 08:00] VITALS: BP 142/55
[2017-09-15] MEDS ORDERED: LACT1CAP26 PO (12:21)
[2017-09-15] MEDS ORDERED: ASPI-1265 PO (12:21)
[2017-09-15] MEDS ORDERED: NICO-687 TD (12:21)
[2017-09-15] MEDS ORDERED: CEPH500C5 PO (12:21)
[2017-09-15] MEDS ORDERED: TRAZ-218 PO (12:21)
[2017-09-15] MEDS ORDERED: HALO1TAB PO (12:21)
[2017-09-15] MEDS ORDERED: ATI0.5T PO (12:21)
[2017-09-15] MEDS ORDERED: QUET100T33 PO (12:21)
[2017-09-15] MEDS ORDERED: METO25TA6 PO (12:21)
[2017-09-15] MEDS ORDERED: cephalexin 500mg capsule PO SCH (16:00)
== END 2017-09-15 16:00 | disposition home or self-care (01) | DRG 885 ==
LOC: ADULT MH 14:49
PROVIDERS: ADMIT Psychiatry & Neurology Psychiatry; ATTEND Psychiatry & Neurology Psychiatry
DX: F20.3 Undifferentiated schizophrenia (principal); L03.113 Cellulitis of right upper limb; E78.5 Hyperlipidemia, unspecified; F17.210 Nicotine dependence, cigarettes, uncomplicated; I10 Essential (primary) hypertension; I73.9 Peripheral vascular disease, unspecified; Z79.899 Other long term (current) drug therapy; Z79.01 Long term (current) use of anticoagulants; Z79.82 Long term (current) use of aspirin
CPT/HCPCS: 36415; 71045; 80048; 80053; 80061; 80164; 81001; 83036; 85025; 87070; 88304; 99285; A4649; A6196; A6257; A6258; A6449; J0690; J7030

== ENCOUNTER 2019-03-11 15:56 | Emergency (ER) | payer MEDICARE, MEDICAID ==
[~2019-03-11] VITALS: Ht 167.6 cm; Wt 79.7 kg
[~2019-03-11 15:56] MED LIST changes: -ASPI-1 PO; +ASPI-1265 PO; +ATI0.5T PO; +CEPH500C5 PO; +HALO1TAB PO; -HALO2TAB PO; +LACT1CAP26 PO; +METO25TA6 PO; -METO50TA16 PO; -TRAZ-218 PO; +TRAZ-251 PO
[2019-03-11] MEDS ORDERED: haloperidol lactate 5mg/ml inj IM ONE (17:05)
[2019-03-11] MEDS ORDERED: AMIO200T61 PO (17:19)
[2019-03-11] MEDS ORDERED: ATOR40TA PO (17:23)
[2019-03-11] MEDS ORDERED: FURO-150 PO (17:29)
[2019-03-11] MEDS ORDERED: DIVA-81 PO (17:29)
[2019-03-11] MEDS ORDERED: CARV-50 PO (17:29)
[2019-03-11] MEDS ORDERED: ISOS30TA6 PO (17:29)
[2019-03-11] MEDS ORDERED: DIVA125T2 PO (17:29)
[2019-03-11] MEDS ORDERED: CLOP75TA35 PO (17:29)
[2019-03-11] MEDS ORDERED: LISI-604 PO (17:31)
[2019-03-11] MEDS ORDERED: LISI-600 PO (17:33)
[2019-03-11] MEDS ORDERED: LISI2.5T2 PO (17:38)
[2019-03-11 18:31] LABS: BASOPHILS # (AUTO) 0.2 X10'3 (0-0.2); BASOPHILS % (AUTO) 1.4 % (0-1); EOSINOPHILS # (AUTO) 0.1 X10'3 (0-0.9); HEMATOCRIT 38.4 % (35.0-45.0); HEMOGLOBIN 13.2 g/dl (12.0-16.0); LYMPHOCYTES # (AUTO) 2.7 X10'3 (1.1-4.8); LYMPHOCYTES % (AUTO) 22.1 % (21-51); MEAN CORPUSCULAR HEMOGLOBIN 33.6 PG (27.0-31.0); MEAN CORPUSCULAR HGB CONC 34.5 g/dL (33.0-36.5); MEAN CORPUSCULAR VOLUME 97.7 FL (78-98); MEAN PLATELET VOLUME 10.2 FL (7.4-10.4); MONOCYTES # (AUTO) 1.2 X10'3 (0-0.9); MONOCYTES % (AUTO) 9.7 % (2-12); NEUTROPHILS % (AUTO) 65.8 % (42-75); PLATELET COUNT 181 X10'3 (140-440); RED BLOOD COUNT 3.93 X10'6 (4.20-5.60); RED CELL DISTRIBUTION WIDTH 15.1 % (11.5-14.5); WHITE BLOOD COUNT 12.2 X10'3 (4.5-11.0)
[2019-03-11 18:45] LABS: ALANINE AMINOTRANSFERASE 39 U/L (12-78); ALBUMIN 3.4 G/DL (3.4-5.0); ALKALINE PHOSPHATASE 182 IU/L (46-116); ANION GAP 9 (8-16); ASPARTATE AMINO TRANSFERASE 36 U/L (10-37); BILIRUBIN,TOTAL 1.3 MG/DL (0.1-1.0); BLOOD UREA NITROGEN 24 MG/DL (7-18); BUN/CREATININE RATIO 25.8 (6.6-38.0); CALCIUM 9.3 MG/DL (8.5-10.1); CHLORIDE 100 MMOL/L (99-107); CREATININE 0.93 MG/DL (0.40-0.90); GLUCOSE 115 MG/DL (70-104); POTASSIUM 3.2 MMOL/L (3.5-5.1); SODIUM 137 MMOL/L (135-145); TOTAL CARBON DIOXIDE 28.3 MMOL/L (24-32); TOTAL PROTEIN 6.8 G/DL (6.4-8.2); eGFR 60 ML/MIN
[2019-03-11 18:53] LABS: ETHANOL < 0.010 GM/DL (0.0-0.010)
--- NOTE | 2019-03-11 19:00 | NUR ---
Patient is sitting up in bed. Patient presents as upsed and paranoid. This rewriter spoke with patient and reassured that she is in a safe place. The patient is redirected to relax and rest. Patient provided with warm blankets.
--- NOTE | 2019-03-11 19:30 | NUR ---
faxed signed med rec to pharmacy
--- NOTE | 2019-03-11 19:45 | NUR ---
Patient is now sleeping in bed. Her head is at the food of the bed, her feet at the head of the bed. She awakens on occasion and talkes to someone who is not there. Patient is in direct observation from the nursing station.
[2019-03-11 19:50] LABS: URINE AMPHETAMINE SCREEN NEGATIVE (Neg); URINE BARBITUATE SCREEN NEGATIVE (Neg); URINE BENZODIAZEPINES SCREEN NEGATIVE (Neg); URINE CANNABINOID SCREEN POSITIVE (Neg); URINE COCAINE SCREEN NEGATIVE (Neg); URINE METHADONE SCREEN NEGATIVE (Neg); URINE OPIATE SCREEN NEGATIVE (Neg); URINE PHENCYCLIDINE SCREEN NEGATIVE (Neg)
[2019-03-11 20:01] LABS: BILIRUBIN,DIRECT 0.2 MG/DL (0-0.3)
[2019-03-11 20:13] LABS: CLARITY,URINE CLOUDY (Clear); COLOR,URINE YELLOW (Yellow); GLUCOSE, URINE NEGATIVE (Neg); KETONES,URINE TRACE mg/dl (Neg); LEUKOCYTE ESTERASE ,URINE SMALL (Neg); NITRITES, URINE NEGATIVE (Neg); OCCULT BLOOD,URINE TRACE-INTACT (Neg); PH,URINE 5.5 (4.8-8.0); PROTEIN,URINE NEGATIVE (Neg); UROBILINOGEN,URINE 0.2 E.U/dL (0.2-1.0)
[2019-03-11 20:14] LABS: UA COLLECTION TYPE CLN CATCH MIDSTREAM
[2019-03-11 20:19] LABS: BACTERIA,URINE 4+ /HPF (Neg); RBC,URINE 0-2 /HPF (0-2); SQUAMOUS EPITHELIAL CELL,UR MANY /LPF (FEW); WBC,URINE 50-100 /HPF (0-4)
[2019-03-11 20:20] LABS: MUCUS STRANDS NONE SEEN /LPF (Neg)
--- NOTE | 2019-03-11 20:23 | NUR ---
Lab called and report the urine sample will be rejected for culture. Primary RN and Dr. Reeves notified.
[2019-03-11] MEDS ORDERED: atorvastatin 20mg tablet PO SCH (21:00)
[2019-03-11] MEDS: divalproex sod 250mg ER (24-hour) tablet PO SCH (21:04)
[2019-03-11] MEDS: carVEDilol 12.5mg tablet PO SCH (21:05)
--- NOTE | 2019-03-11 21:45 | NUR ---
Patient is sleeping quietly, in prone position in bed.
--- NOTE | 2019-03-12 01:05 | NUR ---
Patient is out of bed ambulating to the bathroom with use of walker. She then returns to bed. Patient given warm blankets.
--- NOTE | 2019-03-12 02:18 | NUR ---
Dr. Yue Mccain consulted on UA result. Per lab not eligible for culture. In the abence of nitrates and considering patient is still exhibiting psychotic behavior we will hold on doing a cath for urine. Patient will be evaluated for symptomatology when patient is less psychotic and cooperative.
[2019-03-12 05:45] VITALS: BP_DIAS 55
--- NOTE | 2019-03-12 06:21 | NUR ---
Patient remains sleeping quietlly.
--- NOTE | 2019-03-12 06:56 | NUR ---
Patient sleeping supine. No distress observed. Continue to monitor.
[2019-03-12] MEDS ORDERED: pantoprazole 40mg Tablet.DR PO SCH (07:30)
[2019-03-12] MEDS ORDERED: furosemide 20MG tablet PO SCH (08:00)
[2019-03-12] MEDS ORDERED: lisinopril 2.5mg tablet PO SCH (08:00)
[2019-03-12] MEDS ORDERED: amiodarone 200mg tablet PO SCH (08:00)
[2019-03-12] MEDS ORDERED: isosorbide mononitrate 30mg tab.SR.24H PO SCH (08:00)
[2019-03-12] MEDS ORDERED: clopidogrel 75mg tablet PO SCH (08:00)
[2019-03-12 08:23] VITALS: BP_SYST 152
--- NOTE | 2019-03-12 08:23 | NUR ---
Packet faxed to [facility]
[2019-03-12] MEDS: carVEDilol 12.5mg tablet PO SCH (08:24)
[2019-03-12] MEDS: divalproex sod 250mg ER (24-hour) tablet PO SCH (08:24)
--- NOTE | 2019-03-12 08:40 | NUR ---
Patient eating lunch. Patient also took her medication with apple sauce. No distress observed. Continue to monitor.
--- NOTE | 2019-03-12 10:30 | NUR ---
Patient reclining in bed. No distress observed. Continue to monitor.
--- NOTE | 2019-03-12 11:55 | NUR ---
Patient up and down, walking with walker. No distress. Patient is disorganized and wanting RN to place a 5150 on her son and she gives RN an address on [address]. RN explains that RN cannot place a hold on her son because RN is her nurse. Patient states "Oh, okay." Continue to monitor.
--- NOTE | 2019-03-12 13:10 | NUR ---
Patient eating lunch. No distress observed. Continue to monitor.
[2019-03-12] MEDS ORDERED: ASPI-1265 PO (15:33)
== END 2019-03-12 14:30 ==
LOC: ER 15:56
DX: F31.9 Bipolar disorder, unspecified (principal); F78 Other intellectual disabilities; I10 Essential (primary) hypertension; E11.9 Type 2 diabetes mellitus without complications; Z79.82 Long term (current) use of aspirin; Z79.899 Other long term (current) drug therapy
CPT/HCPCS: 36415; 80053; 80305; 80320; 81001; 82248; 84439; 84443; 84484; 85025; 96372; 99285; J1630

== ENCOUNTER 2022-02-05 12:48 | Emergency (ER) | payer MEDICARE, MEDICAID ==
[~2022-02-05] VITALS: Ht 157.5 cm; Wt 110.0 kg
[~2022-02-05 12:48] MED LIST changes: +AMIO200T61 PO; -APIX5TAB3 PO; +ARIP2TAB20 PO; -ATI0.5T PO; +CARV-50 PO; -CEPH500C5 PO; +CLOP75TA34 PO; +DIVA250T4 PO; +DIVA250T8 PO; +EFF37.5XRC PO; +FURO-149 PO; +FURO20TA4 PO; -HALO1TAB PO; +ISOS30TA84 PO; -LACT1CAP26 PO; +LISI2.5T14 PO; -METO25TA6 PO; -NICO-687 TD; -PANT40TA4 PO; +PANT40TA54 PO; -QUET100T33 PO; -TRAZ-251 PO; -VALP250C44 PO
[2022-02-05 12:54] VITALS: BP 130/67
--- NOTE | 2022-02-05 13:36 | NUR ---
Patient to transport home via [facility].
[2022-02-05] MEDS ORDERED: DICL20GE TOP (14:10)
[2022-02-05] MEDS ORDERED: naproxen 500mg tablet PO ONE (14:40)
== END 2022-02-05 14:56 | disposition home or self-care (01) ==
LOC: ER 12:49
DX: M17.11 Unilateral primary osteoarthritis, right knee (principal); M25.561 Pain in right knee; I10 Essential (primary) hypertension; E11.9 Type 2 diabetes mellitus without complications; F17.200 Nicotine dependence, unspecified, uncomplicated
CPT/HCPCS: 73140; 73564; 99284; A6449

== ENCOUNTER 2025-01-28 12:10 | Emergency (ER) | payer OTHER ==
[~2025-01-28] VITALS: Ht 157.5 cm; Wt 63.6 kg
[~2025-01-28 12:10] MED LIST changes: -AMIO200T61 PO; +AMIO200T76 PO; -ARIP2TAB20 PO; +ARIP2TAB67 PO; +DICL20GE TOP; +DIVA-159 PO; -DIVA250T4 PO; -EFF37.5XRC PO; +VENL37.59 PO
[2025-01-28 12:18] VITALS: BP 95/49; PULSE 60; RESP 18; O2SAT 97
--- NOTE | 2025-01-28 13:50 | Physician Documentation ---
History of Present Illness ~ General Chief Complaint: See Chief Complaint Stated Complaint: PACEMAKER COMPLICATIONS Time Seen by MD: 12:58 Primary Medical Doctor: jen borja count includes the [facility] History of Present Illness Initial Comments 74-year-old female presents with a complaint of a dislodged pacemaker he states it appeared flipped over this morning when she woke up but has since resolved. Denies any chest pain shortness of breath or palpitations. denies Any other associated symptoms Medication Reconciliation Allergies: Coded Allergies: No Known Allergies (Unverified , 01/28/25) Scheduled Amiodarone Hcl (Cordarone), 1 TAB PO DAILY Aripiprazole (Aripiprazole), 2 MG PO HS Aspirin (Aspirin), 1 TAB.CHEW PO DAILY Carvedilol* (Coreg*), 1 TABLET PO BID Clopidogrel Bisulfate (Clopidogrel), 1 TABLET PO DAILY Divalproex Sodium (Divalproex Sodium Er), 250 MG PO DAILY Divalproex Sodium (Depakote), 500 MG PO HS Furosemide (Furosemide), 20 MG PO DAILY@1700 Furosemide (Lasix), 1 TAB PO DAILY Isosorbide Mononitrate (Isosorbide Mononitrate Er), 1 TAB PO DAILY Lisinopril (Lisinopril), 1 TAB PO DAILY Pantoprazole Sodium (Pantoprazole Sodium), 40 MG PO BKF Venlafaxine Hcl XR* (Effexor XR*), 37.5 MG PO DAILY Scheduled PRN Diclofenac Sodium (Voltaren Arthritis Pain), 4 GM TOP QID PRN for pain Past Medical History Past Medical History: Hypertension, Diabetes, Extremity Fracture, *CANCER*, *PSYCH*, Bipolar Past Surgical History: pacemaker Alcohol Use: None Drug Use: none Lives with: Spouse Lives In: Home Review of Systems All Other Systems at this time: Reviewed and Negative ROS General: Alert, no apparent distress. . Respiratory: Lungs clear, no respiratory distress. Chest: No accessory muscle use. Cardiovascular: Regular rate and rhythm, no murmurs. pacemakers appears in place and there was no erythema does not appear dislodged Gastrointestinal: Soft, nontender, nondistended. Bowels sounds present. Extremities: Normal range of motion, no deformity. Neurologic: Oriented x4. Psychiatric: Normal mood and affect. Skin: Normal color, warm and dry. No edema, no ecchymosis. Physical Exam Physical Exam Vital Signs: Temperature: 97.7, Source: Temporal, Heart Rate: 60, Respiratory Rate: 18, BP: 95/49, Pulse Oximetry: 97, Weight: 63.640 Oxygen Flow Rate: 0 Progress Results/Orders Results/Orders Completed Orders - SATINDER MURILLO NP Electrocardiogram (01/28/25 ) Vital Signs 01/28/25 01/28/25 12:18 14:26 Temp 97.7 97.7 Pulse 60 Resp 18 B/P (MAP) 95/49 Pulse Ox 97 O2 Flow Rate 0 Medical Decision Making Additional information obtaine: old records Findings Has not present any acute distress and no signs of abnormalities where her pacemaker was placed. EKG indicated that her pacemaker was operating properly with atrial paced rhythm per my interpretation Differential Diagnosis g Departure Disposition: 01 HOME / SELF CARE / HOMELESS Impression: Primary Impression: Pacemaker Condition: Improved Discharge Instructions: Pacemaker Implantation, Adult, Care After Referrals: NO PRIMARY CARE PROVIDER (PCP) Education Educated: Patient Signature Scribe Signature: 8 Attestation: Scribed for Satinder Murillo Supervisor Slate Splitting by Satinder Murillo - BR[place] . 01/28/25 13:53 SATINDER MURILLO NP Jan 28, 2025 13:50
--- NOTE | 2025-01-28 14:08 | ELECTROCARDIOGRAPH REPORT ---
[facility] Test Date: 2025-01-28 Test Time: 14:06:52 Pat Name: PRASHANT JENKINS Department: [facility] Patient ID: [id number] Room: Gender: F Radius Grinder: : 1950 Requested By: MASSIMO MURILLO Order Number: [id number] Reading MD: Dr. Santana Dahl Measurements Intervals [place] Rate: 60 P: 0 [place]: 155 QRS: 81 QRSD: 99 T: 74 QT: 629 QTc: 629 Interpretive Statements Atrial-paced rhythm Borderline right axis deviation Low voltage, precordial leads Prolonged QT interval Baseline wander in lead(s) V6 Electronically Signed On 01-29-2025 21:13:[address] Santana Dahl Please click the below link to view image of tracing.
[2025-01-28 14:26] VITALS: TEMP 97.7
== END 2025-01-28 14:27 | disposition home or self-care (01) ==
LOC: ER 12:10
DX: Z00.00 Encounter for general adult medical examination without abnormal findings (principal); E11.9 Type 2 diabetes mellitus without complications; F31.9 Bipolar disorder, unspecified; I10 Essential (primary) hypertension; Z95.0 Presence of cardiac pacemaker; Z79.899 Other long term (current) drug therapy; Z79.82 Long term (current) use of aspirin
CPT/HCPCS: 93005; 99283